=== PATIENT | male | born 1965 | race Caucasian/White ===

== ENCOUNTER 2017-03-24 09:59 | Inpatient (IN) | payer OTHER ==
[~2017-03-24] VITALS: Ht 177.8 cm; Wt 99.3 kg
[~2017-03-24 09:59] MED LIST: ADVIL LIQUI-GE200 MG PO; ALBUTEROL2.5 MG/0.5 INH; HYDROCODONE-AP1 EAC6 PO; IBUPROFEN 600600 M1 PO; IBUPROFEN 800800 MG PO; NORCO 5-325 TA1 EACH PO; PERCOCET 5-3251 EACH PO; XANAX 0.25 MG0.25 MG PO
[2017-03-24 10:04] VITALS: BP 120/97
[2017-03-24 10:49] LABS: CALCIUM 8.9 mg/dL (8.5-10.1); CREATININE 1.1 mg/dL (0.6-1.3); POTASSIUM 4.6 mmol/L (3.5-5.1)
[2017-03-24 10:53] LABS: ALBUMIN 3.4 g/dL (3.4-5.0); TOTAL BILIRUBIN 0.7 mg/dL (<0.1-1.0); TOTAL PROTEIN 7.6 g/dL (6.4-8.2)
[2017-03-24 10:58] LABS: HEMATOCRIT 41.2 % (42.0-52.0); HEMOGLOBIN 13.8 gm/dL (14.0-18.0); MCH 31.5 pg (26.0-34.0); MCHC 33.6 g/dL (28.0-37.0); MCV 93.7 fL (80.0-100.0); MPV 7.9 fl. (7.2-11.1); NUCLEATED RBCS 0 /100WBC; PLATELET COUNT* 354 thou/uL (150-400); RBC 4.39 mil/uL (4.50-6.00); RDW-CV 14.1 % (10.5-14.5); WBC 22.4 thou/uL (4.0-11.0)
[2017-03-24 11:31] LABS: ABSOLUTE LYMPHOCYTES 2.7 thou/uL (0.8-5.3); ABSOLUTE NEUTROPHILS 17.7 thou/uL (1.6-8.1); PLATELET ESTIMATE ADEQUATE
[2017-03-24 11:32] LABS: LARGE PLATELETS OCCASIONAL
[2017-03-24 12:28] VITALS: BP 122/72
[2017-03-24 12:50] VITALS: BP 112/77
[2017-03-24 14:06] LABS: SOURCE RIGHT KNEE
[2017-03-24 16:00] VITALS: BP 100/56
[2017-03-24 16:18] LABS: SOURCE ASCITES
[2017-03-24 16:19] LABS: BF LYMPHOCYTES 7 %; BF MONOCYTES 0 %; BF POLYS 93 %; BF RBC 130800 /mm3; CLARITY TURBID; COLOR AMBER; TOTAL CELL COUNT 390000 /mm3; TOTAL VOLUME 5 ml
[2017-03-24 19:45] VITALS: BP 104/44
[2017-03-25 04:00] VITALS: BP 121/70
[2017-03-25 04:19] LABS: HEMATOCRIT 38.8 % (42.0-52.0); HEMOGLOBIN 12.9 gm/dL (14.0-18.0); MCH 31.7 pg (26.0-34.0); MCHC 33.3 g/dL (28.0-37.0); MCV 95.3 fL (80.0-100.0); MPV 8.2 fl. (7.2-11.1); RBC 4.07 mil/uL (4.50-6.00); RDW-CV 13.9 % (10.5-14.5); WBC 15.6 thou/uL (4.0-11.0)
[2017-03-25 04:39] LABS: ALBUMIN 2.8 g/dL (3.4-5.0); CALCIUM 8.5 mg/dL (8.5-10.1); CREATININE 1.1 mg/dL (0.6-1.3); MAGNESIUM 1.9 mg/dL (1.8-2.4); TOTAL BILIRUBIN 0.3 mg/dL (<0.1-1.0); TOTAL PROTEIN 6.6 g/dL (6.4-8.2)
[2017-03-25 06:25] LABS: SOURCE RIGHT KNEE
[2017-03-25 08:15] VITALS: BP 86/64
[2017-03-25 13:45] VITALS: BP 123/76
[2017-03-25 16:01] VITALS: BP 113/77
[2017-03-25 20:00] VITALS: BP 105/63
[2017-03-26 08:25] VITALS: BP 112/78
[2017-03-26 13:11] LABS: BODY FLUID PROTEIN 5.3 g/dL (())
[2017-03-26 20:15] VITALS: BP 122/57
[2017-03-27 08:45] VITALS: BP 127/84
[2017-03-27 10:20] VITALS: BP 127/84
[2017-03-27] MEDS ORDERED: HYDROCODONE-AP1 EAC6 PO (10:24)
[2017-03-27] MEDS ORDERED: CIPRO500 MG PO (10:28)
[2017-03-27] MEDS ORDERED: BACTRIM DS TAB1 EACH PO (10:29)
--- NOTE | 2017-04-11 13:16 | OP ---
[address] [address] OPERATIVE REPORT Name: NITESH LAWTON Room: [address] M.R.#: [id number] Admission: 03/24/17 Attend Phys: Skylar Ambrose MD Discharge: 03/27/17 Date of : 67 Report #: [id number] THIS REPORT FOR: //name// CC: [facility] physician/PCP Skylar Ambrose DICTATED BY: John Owens DO DATE OF SERVICE: 03/25/2017 PREOPERATIVE DIAGNOSIS: Right knee septic prepatellar bursitis. POSTOPERATIVE DIAGNOSIS: Right knee septic prepatellar bursitis. PROCEDURE PERFORMED: Right knee prepatellar bursa irrigation and debridement with bursectomy. SURGEON: Nitesh Mitchell DO. MINERAL ENGINEER: 1. John Owens DO. 2. Robert Silverio DO. SPECIMENS REMOVED: Right knee bursa as well as fluid cultures. ESTIMATED BLOOD LOSS: 25 mL. COMPLICATIONS: None. DISPOSITION: Stable to PACU. INDICATIONS FOR PROCEDURE: The patient is a 51-year-old male who presented to [facility] yesterday with complaints of 2 days of right knee pain and swelling. States he hit his knee against a door approximately 2 days ago right into the anterior aspect of the knee and has had some redness and swelling developing since that time. States the pain is located to the anterior aspect of the knee. Physical exam was consistent with prepatellar bursitis. An aspiration of the prepatellar bursa was obtained yesterday, which was sent for fluid analysis and was consistent with Staphylococcus aureus species. It was recommended that the patient undergo a formal irrigation and debridement of the right knee. The risks, benefits, alternatives, complications were discussed and they wished to proceed. DESCRIPTION OF PROCEDURE: The patient was seen and examined in the preoperative holding area. Consent was obtained and placed in the chart. The correct operative extremity was marked by the operating [place] [address] OPERATIVE REPORT Name: NITESH LAWTON Room: [address] IN [facility].#: [id number] Admission: 03/24/17 Attend Phys: Skylar Ambrose MD Discharge: 03/27/17 Date of : 67 Report #: [id number] transferred to the operating room and placed supine on the operating table. He was given the benefit of general anesthesia. A well-padded tourniquet was placed to the right thigh, but was not inflated during the procedure. A timeout was performed to verify the correct patient, procedure and operative site and all were in agreement. The right lower extremity was prepped and draped in the usual sterile fashion. A skin incision was then made over the anterior aspect of the right knee. Dissection was taken down to the level of the prepatellar bursa. A large amount of purulent fluid was then encountered during dissection. Cultures were then taken and sent for analysis. The prepatellar bursa was noted to be indurated and inflamed. A bursectomy was then performed with Metzenbaum scissors. Next, 3 liters of normal saline were irrigated with pulsatile lavage throughout the right knee. A Wilson drain was then placed into the prepatellar bursa. The incision was closed with 3-0 nylon in simple interrupted fashion. A sterile dressing of Xeroform, 4 x 4's, ABD, Kerlix and an Sven wrap were applied to the right knee. The patient was awakened from anesthesia and transferred to the PACU in stable condition. DISPOSITION: The patient will be transferred back to the general medical floor when stable from the PACU. He will continue IV antibiotics. He will be weightbearing as tolerated to the right lower extremity and an order for physical therapy will be placed for range of motion exercises. The patient tolerated the procedure well. There were no complications. <ELECTRONICALLY SIGNED> By: Nitesh Micthell DO 04/11/17 1316 1253 1315Micharoldo Mitchell DO /nt
== END 2017-03-27 11:11 | disposition home or self-care (01) | DRG 501 ==
LOC: M.ERS 09:59 → M.3W 10:52 → M.TBA-ER 10:52 → M.3W 12:42
PROVIDERS: Emergency Medicine; Orthopaedic Surgery; ADMIT Internal Medicine
PROC: 0MTN0ZZ Resection of Right Knee Bursa and Ligament, Open Approach (ICD-10-PCS; principal; 2017-03-25)
DX: M71.161 Other infective bursitis, right knee (principal); L03.115 Cellulitis of right lower limb; B95.62 Methicillin resistant Staphylococcus aureus infection as the cause of diseases classified elsewhere; M17.11 Unilateral primary osteoarthritis, right knee; F15.90 Other stimulant use, unspecified, uncomplicated; F12.90 Cannabis use, unspecified, uncomplicated; F17.210 Nicotine dependence, cigarettes, uncomplicated; Z71.6 Tobacco abuse counseling

== ENCOUNTER 2019-08-29 13:12 | Inpatient (IN) | payer OTHER ==
[~2019-08-29] VITALS: Ht 177.8 cm; Wt 114.3 kg
[~2019-08-29 13:12] MED LIST changes: +BACTRIM DS TAB1 EACH PO; +CIPRO500 MG PO
[2019-08-29 13:30] VITALS: BP 137/92
[2019-08-29 14:42] LABS: ABSOLUTE BASOPHILS 0.1 thou/uL (0.0-0.2); ABSOLUTE EOSINOPHILS 0.1 thou/uL (0.0-0.7); ABSOLUTE LYMPHOCYTES 2.1 thou/uL (0.8-5.3); ABSOLUTE MONOCYTES 1.8 thou/uL (0.0-1.2); ABSOLUTE NEUTROPHILS 13.6 thou/uL (1.6-8.1); BASOPHILS 0.8 %; EOSINOPHILS 0.8 %; LYMPHOCYTES 11.8 %; MCH 32.5 pg (26.0-34.0); MCHC 34.1 g/dL (28.0-37.0); MCV 95.2 fL (80.0-100.0); MONOCYTES 9.9 %; NUCLEATED RBCS 0 /100WBC; PLATELET COUNT* 284 thou/uL (150-400); POLYS 76.7 %; RBC 4.31 mil/uL (4.50-6.00); RDW-CV 13.9 % (10.5-14.5); WBC 17.7 thou/uL (4.0-11.0)
[2019-08-29 14:59] LABS: CALCIUM 8.7 mg/dL (8.5-10.1); CREATININE 1.2 mg/dL (0.6-1.3); POTASSIUM 3.7 mmol/L (3.5-5.1)
[2019-08-29 15:03] LABS: ALBUMIN 3.6 g/dL (3.4-5.0); TOTAL BILIRUBIN 0.6 mg/dL (<0.1-1.0); TOTAL PROTEIN 7.7 g/dL (6.4-8.2)
[2019-08-29 18:34] VITALS: BP 145/81
[2019-08-29 18:40] VITALS: BP 188/89
--- NOTE | 2019-08-29 19:51 | NUR ---
PATIENT ARRIVED FROM ER AT 1840. PATIENT SETTLED TO ROOM. HISTORY, ASSESSMENT AND VITALS COMPLETED AND DOCUMENTED. PATIENT GIVEN BOW LUCK AND SODA. PATIENT HAS IV VANCOMYCIN INFUSING. CALL LIGHT EDUCATION GIVEN.
[2019-08-29 20:05] VITALS: BP 122/79
--- NOTE | 2019-08-30 05:24 | NUR ---
ASSUMED CARE @ 1925-08/28-SUNDAY.AWAKE IN BED W/ HOB UP.VANCOMYCIN 500 ML INFUSING PER RIGHT FOREARM.EACH LE UP ON PILLOW.LE'S RED,WARM & TENDER.URINAL W/IN REACH.DR MAKI TALKING TO PATIENT @ THIS TIME.SLEEPING ALREADY @ 2004. AWAKENED FOR VS & ASSESSMENT.NS 1000 ML STARTED @ 2109 TO RUN @ 100 ML/HOUR. SEE PAIN PANAGEMENTS @ 2125 & 224.TEMP @ . ORAL.TEMP RE-CHECKED @ .3.PERSPIRING.SHIRT CHANGED TO HOSP GOWN @ 2134 & GOWN CHANGED ONCE ALSO @ 99.TOOK ICED TEA HS SNACK.AT 99-SPRITE W/ ICE TAKEN ALL.PHOTOS TAKEN LEGS @ 129.AT [id number]-HEGG RED-MORE OF PINK & LESS WARM.USED URINAL X1 & BRP IND X1.FOR US LE'S & COMPLETE ECHO TODAY-08/29-SAT.SLEEPING GOOD SINCE 2199.
[2019-08-30 10:42] LABS: HEMATOCRIT 38.6 % (42.0-52.0); HEMOGLOBIN 12.9 gm/dL (14.0-18.0); MCH 32.5 pg (26.0-34.0); MCHC 33.6 g/dL (28.0-37.0); MCV 96.7 fL (80.0-100.0); MPV 8.5 fl. (7.2-11.1); RBC 3.99 mil/uL (4.50-6.00); RDW-CV 14.4 % (10.5-14.5); WBC 20.1 thou/uL (4.0-11.0)
[2019-08-30 10:59] LABS: CALCIUM 8.3 mg/dL (8.5-10.1); CREATININE 1.1 mg/dL (0.6-1.3); POTASSIUM 3.6 mmol/L (3.5-5.1)
--- NOTE | 2019-08-30 12:53 | EKG ---
[place] [address] ELECTROCARDIOGRAM REPORT Name: VIKAS LAWTON Room: [address] ADM IN .R.#: [id number] Admission: 08/29/19 Attend Phys: Skylar Ambrose, Discharge: Date of : 67 Date of Service: 08/29/19 1429 Report #: [id number] THIS REPORT FOR: //name// [facility] ED Test Date: 2019-08-29 Test Time: 14:29:19 Pat Name: VIKAS LAWTON Department: Room: [facility] Gender: M Manager Provider Relations: : 1965 Requested By: Sae Ocasio Order Number: [id number] MD: Justice Sy Measurements Intervals Whitmer Rate: 90 P: 43 AL: 80 QRS: 88 QRSD: 108 T: 59 QT: 359 QTc: 440 Interpretive Statements Sinus rhythm Short AL interval ST elev, probable normal early repol pattern Baseline wander in lead(s) II,III,aVR,aVL,aVF,V1,V2,V3,V4,V5,V6 No previous ECG available for comparison Electronically Signed On 08-30-2019 12:52:32 CDT by Justice Sy [email or web address] <ELECTRONICALLY SIGNED> By: Justice Sy MD, FACC 08/30/19 1252 1429 1429 Justice Sy MD, [facility] /EPI
[2019-08-30 16:00] VITALS: BP 163/64
--- NOTE | 2019-08-30 18:34 | NUR ---
ALERT AND ORIENTED X4. UP AD SANTI IN ROOM. USING PO PAIN MEDICATION TO HELP WITH PAIN. LOWER EXTREMITIES SLIGHTLY PINK AND SWOLLEN. TUBIGRIPS APPLIED TO LOWER EXTREMITIES. USES CALL LIGHT WHEN NEEDING ASSIST. CONTINUES ON IV ANTIBIODICS WITHOUT ADVERSE REACTIONS OR SIDE EFFECTS. IV INFILTRATED AND NEW IV STARTED WITHOUT DIFFICULTY.
[2019-08-30 20:00] VITALS: BP 137/86
--- NOTE | 2019-08-31 06:31 | NUR ---
Alert and oriented x 4. He is up independently in the room. He has tubigrip stockings on bilat. He has edema in bilat LE's worse on the right. He was taken down for CTA of LE's last evening. He has had pain meds x 3. He has slept well.
[2019-08-31 08:57] LABS: HEMATOCRIT 38.5 % (42.0-52.0); MCH 32.3 pg (26.0-34.0); MCHC 33.7 g/dL (28.0-37.0); MPV 8.2 fl. (7.2-11.1); RBC 4.01 mil/uL (4.50-6.00); RDW-CV 14.7 % (10.5-14.5); WBC 12.3 thou/uL (4.0-11.0)
[2019-08-31 09:03] LABS: CALCIUM 8.1 mg/dL (8.5-10.1); CREATININE 0.9 mg/dL (0.6-1.3); POTASSIUM 3.8 mmol/L (3.5-5.1)
[2019-08-31] MEDS ORDERED: HYDROCODON-ACE1 EAC7 PO (09:42)
[2019-08-31] MEDS ORDERED: DOXYCYCLINE 10100 M2 PO (09:42)
[2019-08-31 11:39] VITALS: BP 137/86
--- NOTE | 2019-08-31 12:46 | NUR ---
PATIENT VERBALIZED UNDERSTANDING OF DISCHARGE INSTRUCTIONS. USING PO PAIN MEDICATION TO HELP WITH LOWER EXTREMITIES LEG PAIN. LOWER LEGS ONLY SLIGHTLY PINK BUT STILL HAS SOME EDEMA. PATIENT GIVEN STOP SMOKING PACKET. IV D/C WITHOUT DIFFICULTY. PATIENT INSTRUCTED RX CALLED INTO PHARMACY OF CHOICE BY PATIENT INSTRUCTED TO ELEVATE LEGS WHEN SITTING TO HELP WITH EDEMA. D/C VIA W/C TO [facility].
--- NOTE | 2019-09-01 16:02 | NUR ---
PT DC'ED BEFORE P.T. ASSESSMENT WAS PERFORMED. BEST PLATT,MPT
== END 2019-08-31 13:00 | disposition home or self-care (01) | DRG 603 ==
LOC: M.ERS 13:12 → M.3W 15:44 → M.TBA-ER 15:44 → M.3W 18:39
PROVIDERS: Nurse Practitioner Family; ADMIT Internal Medicine; ATTEND Internal Medicine
DX: L03.115 Cellulitis of right lower limb (principal); R65.10 Systemic inflammatory response syndrome (SIRS) of non-infectious origin without acute organ dysfunction; L03.116 Cellulitis of left lower limb; F41.9 Anxiety disorder, unspecified; L30.9 Dermatitis, unspecified; J44.9 Chronic obstructive pulmonary disease, unspecified; G89.29 Other chronic pain; F12.90 Cannabis use, unspecified, uncomplicated; F17.210 Nicotine dependence, cigarettes, uncomplicated; Z72.89 Other problems related to lifestyle